=== PATIENT | female | born 1975 | race Caucasian/White ===

== ENCOUNTER → 2016-11-14 | Outpatient (CLI) | payer BC ==
--- NOTE | 2016-11-14 14:04 | US ---
EXAMINATION TYPE: US transvaginal DATE OF EXAM: 11/14/2016 1:32 PM COMPARISON: on PACS CLINICAL HISTORY: Pelvic Pain R10.2. Patient states having intermittent pelvic discomfort, hx of tuba l ligation TECHNIQUE: Transvaginal (TV) Date of LMP: 11/14/2016, EXAM MEASUREMENTS: Uterus: 7.1 x 4.8 x 3.9 cm Endometrial Stripe: 0.3 cm Right Ovary: 2.8 x 1.3 x 1.4 cm Left Ovary: 2.6 x 1.5 x 1.3 cm 1. Uterus: Retroverted Increased peripheral vascularity. 2. Endometrium: wnl 3. Right Ovary: follicles seen 4. Left Ovary: follicles seen Spectral, color and waveform doppler imaging shows good arterial and venous flow within the ovaries ; there is no evidence for ovarian torsion. 5. Bilateral Adnexa: wnl 6. Posterior cul-de-sac: no free fluid IMPRESSION: PLEASE CORRELATE CLINICALLY FOR PELVIC CONGESTION SYNDROME.
== END | disposition home or self-care (01) ==
LOC: RADUSWWP 13:05
PROVIDERS: ATTEND Obstetrics & Gynecology
DX: R10.2 Pelvic and perineal pain (principal)
CPT/HCPCS: 76830

== ENCOUNTER → 2017-05-12 | Outpatient (CLI) | payer BC ==
[2017-05-12 10:37] LABS: Cholesterol 164 mg/dL (<200); HDL Cholesterol 72 mg/dL (40-60)
--- NOTE | 2017-05-12 11:40 | MM ---
Reason for exam: screening (asymptomatic). Last mammogram was performed 3 years and 9 months ago. History: Taking hormonal contraceptives beginning at age 21. Physical Findings: A clinical breast exam by your physician is recommended on an annual basis and results should be correlated with mammographic findings. MG Screening Mammo w CAD Bilateral CC and MLO view(s) were taken. Prior study comparison: August 15, 2013, bilateral digital screening mammo w/CAD. The breast tissue is heterogeneously dense. This may lower the sensitivity of mammography. Finding: There are typically benign round calcifications in the right breast. There is no discrete abnormality. ASSESSMENT: Benign, BI-RAD 2 RECOMMENDATION: Routine screening mammogram of both breasts in 1 year.
== END | disposition home or self-care (01) ==
LOC: RADMAMWWP 09:21
PROVIDERS: ATTEND Obstetrics & Gynecology
DX: Z12.31 Encounter for screening mammogram for malignant neoplasm of breast (principal)
CPT/HCPCS: 80061; 36415; G0202

== ENCOUNTER → 2017-10-06 | Outpatient (CLI) | payer BC ==
--- NOTE | 2017-10-06 13:11 | US ---
EXAMINATION TYPE: US thyroid st tissue head/neck DATE OF EXAM: 10/06/2017 COMPARISON: 08/07/2015 CLINICAL HISTORY: 41-year-old female E04.1 CYSTIC THYROID NODULE. Follow-up exam TECHNIQUE: Multiple sonographic images of the thyroid gland are obtained. FINDINGS: Right Lobe: 4.2 x 1.3 x 1.4 cm Left Lobe: 3.7 x 1.0 x 1.0 cm Isthmus Thickness: 0.3 cm NODULES RIGHT: # of nodules measured on right: 1 1. 11 x 10 x 7 mm hypoechoic solid nodule at the mid pole with well-defined margins. This nodule is wider than tall and shows intranodular vascularity. Prior size: 9 x 9 x 6 mm LEFT: # of nodules measured on left: 0 ISTHMUS: # of nodules measured in the isthmus: 0 Bilateral neck scanned, no evidence of lymphadenopathy. Scanned inferior to thyroid gland bilaterally and saw no parathyroid tissue to image. IMPRESSION: Solitary solid nodule in the right lobe measures 1.1 x 1.0 cm and is only a millimeter or two larger in 2 dimensions as compared to 08/07/2015.
--- NOTE | 2017-10-06 13:21 | XR ---
EXAMINATION TYPE: XR cervical spine comp DATE OF EXAM: 10/06/2017 COMPARISON: NONE HISTORY: 41-year-old female intermittent chronic neck pain and stiffness, cervicalgia TECHNIQUE: 5 views FINDINGS: No predental space widening or prevertebral soft tissue swelling. Reversal normal cervical lordosis. Alignment maintained. The T2 vertebral body projects over the patient's shoulders. Mild disc/endplate degenerative change w ith anterior plate spondylosis particularly at C5-C7 levels, new in the interval as compared to 2013. On the right, there is mild bony spondylotic near foraminal narrowing at C3-C4. On the left, no significant bony spondylotic near foraminal narrowing. Normal odontoid view. IMPRESSION: 1. Mild disc/endplate degenerative change from C5 through C7 levels, new from 2013. 2. Reversal of the normal cervical lordosis. This could be positional or due to muscle spasm. 3. The T2 vertebral body projects about the shoulders. 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 Clinically correlate.
== END | disposition home or self-care (01) ==
LOC: RADUSWWP 10:57
PROVIDERS: ATTEND Family Medicine
DX: E04.1 Nontoxic single thyroid nodule (principal); M47.812 Spondylosis without myelopathy or radiculopathy, cervical region; M53.82 Other specified dorsopathies, cervical region
CPT/HCPCS: 72050; 76536

== ENCOUNTER → 2017-12-07 | Outpatient (CLI) | payer BC | END | disposition home or self-care (01) | LOC: LABWHC1 11:29 | PROVIDERS: ATTEND Student in an Organized Health Care Education/Training Program | DX: E04.1 Nontoxic single thyroid nodule (principal) | CPT/HCPCS: 36415; 82308 ==

== ENCOUNTER → 2018-08-18 | Outpatient (CLI) | payer BC ==
--- NOTE | 2018-08-21 12:33 | MM ---
Reason for exam: screening (asymptomatic). Last mammogram was performed 1 year and 3 months ago. History: Taking hormonal contraceptives beginning at age 21. MG Screening Mammo w CAD Bilateral CC and MLO view(s) were taken. Prior study comparison: May 12, 2017, bilateral MG screening mammo w CAD. August 15, 2013, bilateral digital screening mammo w/CAD. The breast tissue is heterogeneously dense. This may lower the sensitivity of mammography. No significant changes when compared with prior studies. ASSESSMENT: Negative, BI-RAD 1 RECOMMENDATION: Routine screening mammogram of both breasts in 1 year.
== END ==
LOC: RADMAMWWP 11:36
PROVIDERS: ATTEND Obstetrics & Gynecology
DX: Z12.31 Encounter for screening mammogram for malignant neoplasm of breast (principal)
CPT/HCPCS: 77067

== ENCOUNTER → 2018-10-05 | Day surgery (SDC) | payer BC ==
[~2018-10-05] MED LIST: BENZOCAINE SPRAY 1 CAN MUCOUS MEM ONE; MIDAZOLAM 2 MG/2 ML VIAL IV ONE; SODIUM CHLORIDE 0.9% 500 ML 500 ML IV ONE; fentaNYL (PF) 50 MCG/ML 2 ML AMP ONE
[2018-10-05 10:55] VITALS: TEMP 98.4
[2018-10-05] MEDS: MIDAZOLAM 2 MG/2 ML VIAL IV ONE ×2 (11:55→11:58)
[2018-10-05] MEDS: fentaNYL (PF) 50 MCG/ML 2 ML AMP IV ONE ×5 (12:25→12:38)
[2018-10-05 13:11] VITALS: RESP 16
--- NOTE | 2018-10-05 13:13 | ECHOT ---
TRANSESOPHAGEAL ECHOCARDIOGRAM DATE OF SERVICE: October 05, 2018 PERFORMING PHYSICIAN: Jose Enrique Loyola MD, insurance claims adjuster. PROCEDURE PERFORMED: Transesophageal echocardiogram. INDICATION: This is a pleasant 42-year-old female patient who was experiencing intermittent episodes of dizziness and lightheadedness associated with left arm numbness. TIA was a concern and the transesophageal echocardiogram is to rule out any cardiac source of embolization. COMPLICATION: None. LEVEL OF SEDATION: Moderate with sedation length of 12 minutes. PROCEDURE DESCRIPTION: After obtaining an informed consent, explaining the procedure, benefits, risks, complications and alternatives, the patient was brought to the transesophageal echocardiogram suite. A pulse oximetry and heart rate monitors were attached to the patient prior to the procedure. The patient's throat was sprayed using lidocaine locally. Following that, the patient was turned into left lateral position. A bite guard was placed and the patient was then sedated with the above doses of Versed and fentanyl in divided doses. Following that, the transesophageal echocardiogram probe was advanced through the bite guard into the mid esophagus where 2-D echocardiogram images as well as color Doppler images of various cardiac structures were obtained. We evaluated the interatrial septum using 2-D echocardiogram, color Doppler, and contrast study. The procedure was completed. There were no complications. FINDINGS: The left ventricular dimension appeared to be within normal limits. The left ventricular systolic function seems to be low normal with EF of 50%. Right ventricle appeared to be of normal size and function. The left atrium appeared to be mildly dilated. The aortic valve is trileaflet valve without stenosis or regurgitation. The mitral valve seems to be normal with trace MR. Normal tricuspid valve and pulmonic valve. The aortic root appeared to be within normal limits for dimension. The left atrial appendage appeared to be free from any thrombus. The interatrial septum appeared to be intact without any evidence of shunt by color-flow Doppler as well as contrast study. CONCLUSION: 1. No evidence of cardiac source of embolization. 2. Normal left atrial appendage without any thrombus. 3. Intact interatrial septum without any evidence of shunt. 4. Low normal left ventricular systolic function. 5. Normal cardiac chamber sizes. 6. Normal intracardiac valves. 7. Normal aortic root dimension. 8. No evidence of pericardial effusion. MMODL / IJN: [id number] /
[2018-10-05 13:45] VITALS: BP 99/63; PULSE 60
== END ==
LOC: CATHCVL 10:24
PROVIDERS: ATTEND Internal Medicine Interventional Cardiology
DX: I20.1 Angina pectoris with documented spasm (principal); Z79.890 Hormone replacement therapy; Z79.899 Other long term (current) drug therapy
CPT/HCPCS: 93312; 93320; 93325; J2250; J3010

== ENCOUNTER → 2019-10-20 | Outpatient (CLI) | payer BC ==
--- NOTE | 2019-10-20 12:51 | XR ---
EXAMINATION TYPE: XR chest 2V DATE OF EXAM: 10/20/2019 COMPARISON: Chest x-ray August 29, 2013 HISTORY: Cough for 7 weeks. TECHNIQUE: Frontal and lateral views of the chest are obtained. FINDINGS: There is no focal air space opacity, pleural effusion, or pneumothorax seen. The cardiac silhouette size is within normal limits. The osseous structures are intact. IMPRESSION: No suspicious acute pulmonary process.
== END | disposition home or self-care (01) ==
LOC: RADXRMAIN 12:10
PROVIDERS: ATTEND Family Medicine
DX: R05 Cough (principal)
CPT/HCPCS: 71046

== ENCOUNTER → 2020-09-03 | Outpatient (CLI) | payer BC ==
--- NOTE | 2020-09-04 09:28 | MM ---
Reason for exam: screening (asymptomatic). Last mammogram was performed 2 years and 1 month ago. History: Took hormonal contraceptives beginning at age 21. Physical Findings: A clinical breast exam by your physician is recommended on an annual basis and results should be correlated with mammographic findings. MG 3D Screening Mammo W/Cad Bilateral CC and MLO view(s) were taken. Prior study comparison: August 18, 2018, bilateral MG screening mammo w CAD. May 12, 2017, bilateral MG screening mammo w CAD. The breast tissue is heterogeneously dense. This may lower the sensitivity of mammography. Focal asymmetry lower left MLO view. ASSESSMENT: Incomplete: need additional imaging evaluation, BI-RAD 0 RECOMMENDATION: Special view mammogram of the left breast. If lesion persists on supplemental views, image directed ultrasound is recommended. [facility] will attempt to contact patient to return for supplemental views and ultrasound if indicated.
== END | disposition home or self-care (01) ==
LOC: RADMAMWWP 11:01
PROVIDERS: ATTEND Obstetrics & Gynecology
DX: Z12.31 Encounter for screening mammogram for malignant neoplasm of breast (principal)
CPT/HCPCS: 77063; 77067

== ENCOUNTER → 2020-09-03 | Outpatient (CLI) | payer BC ==
[2020-09-03 20:25] LABS: ALT 35 U/L (8-44); AST 38 U/L (13-35); Cholesterol 170 mg/dL (0-200); Triglycerides <50.0 mg/dL (0.0-149.0)
== END | disposition home or self-care (01) ==
LOC: LABWHC1 11:06
PROVIDERS: ATTEND Internal Medicine Interventional Cardiology
DX: E78.2 Mixed hyperlipidemia (principal)
CPT/HCPCS: 36415; 80061; 84450; 84460

== ENCOUNTER → 2020-09-05 | Outpatient (CLI) | payer BC ==
--- NOTE | 2020-09-05 14:44 | MM ---
Reason for exam: additional evaluation requested from abnormal screening. Last mammogram was performed less than 1 month ago. History: Took hormonal contraceptives beginning at age 21. Physical Findings: Nurse did not find any significant physical abnormalities on exam. MG Work Up Mamm w CAD LT Spot compression CC, spot compression MLO, and ML view(s) were taken of the left breast. Prior study comparison: September 03, 2020, bilateral MG 3d screening mammo w/cad. August 18, 2018, bilateral MG screening mammo w CAD. The breast tissue is heterogeneously dense. This may lower the sensitivity of mammography. Focal asymmetry compresses, disperses on compression. These results were verbally communicated with the patient and result sheet given to the patient on 09/05/20. ASSESSMENT: Probably benign, BI-RAD 3 RECOMMENDATION: Follow-up diagnostic mammogram of the left breast in 6 months.
== END | disposition home or self-care (01) ==
LOC: RADMAMWWP 09:11
PROVIDERS: ATTEND Obstetrics & Gynecology
DX: R92.8 Other abnormal and inconclusive findings on diagnostic imaging of breast (principal)
CPT/HCPCS: 77065

== ENCOUNTER 2020-10-24 14:12 | Emergency (ER) | payer BC ==
--- NOTE | 2020-10-24 15:38 | ED ---
SOB HPI <Rema Roldan - Last Filed: 10/24/20 15:35> - General Source: patient, RN notes reviewed Mode of arrival: ambulatory Limitations: no limitations - History of Present Illness MD Complaint: cough -: days(s) (13) Severity scale (1-10): 5 Quality: aching (joints) Consistency: intermittent Improves With: rest Worsens With: exertion, coughing Known History Of: other (dx covid 19 on 10/17, symptoms started 10/11) Context: other (covid + 10/17) Associated Symptoms: cough Treatments Prior to Arrival: other (medrol dose pack, zithromax and cough meds) <Sarthak Cifuentes - Last Filed: 10/24/20 17:45> - General Stated Complaint: O2 levels low-COVID+ - History of Present Illness Initial Comments: Patient is a 44-year-old female presenting to the emergency Department with concerns of low oxygen levels at home. She was diagnosed with Covid 7 days ago, symptoms began 13 days ago. Patient states she's been monitoring her oxygen levels at home and they've been ranging from anywhere from 82% to 95%. She states she is overall feeling improvement of her symptoms but continues to have a headache, cough, fevers as well. She is having some chest discomfort/tigh tness. (Rema Roldan) 44 year old well appearing white female presents with concerns that home pulse ox readings occasionally run below 92%. Pt can't say if she is feeling better on abx and steroids prescribed Thursday by PMD Dr Cortez. States has been talking to friends and family and told if oxygen sats are below 90% needs to be admitted. Sat in office was 97% and here in ER 95%. Pt states has been active and walking at home, trying to be active. Sometimes nauseated with eating but no vomiting or diarrhea. (Sarthak Cifuentes) - Related Data Home Medications Medication Instructions Recorded Confirmed Isosorbide Mononitrate ER [Imdur] 30 mg PO DAILY 10/04/18 10/05/18 Norethindrone-E.estradiol-Iron 1 tab PO DAILY 10/04/18 10/05/18 [Junel Fe 24 Tablet] buPROPion XL [Wellbutrin XL] 150 mg PO DAILY 10/04/18 10/05/18 clonazePAM 1 mg PO BID 10/04/18 10/04/18 Aspirin [Adult Low Dose Aspirin EC] 81 mg PO DAILY 10/05/18 10/05/18 Allergies Allergy/AdvReac Type Severity Reaction Status Date / Time No Known Allergies Allergy Verified 10/24/20 15:42 Review of Systems ROS Other: All systems not noted in ROS Statement are negative. <Rema Roldan - Last Filed: 10/24/20 15:35> ROS Other: All systems not noted in ROS Statement are negative. <Sarthak Cifuentes - Last Filed: 10/24/20 17:45> ROS Statement: Those systems with pertinent positive or pertinent negative responses have been documented in the HPI. General Exam Limitations: no limitations General appearance: alert, in no apparent distress Head exam: Present: atraumatic, normocephalic <Rema Roldan - Last Filed: 10/24/20 15:35> General appearance: alert, in no apparent distress Head exam: Present: atraumatic, normocephalic, normal inspection Eye exam: Present: normal appearance, PERRL, EOMI. Absent: scleral icterus, conjunctival injection, periorbital swelling ENT exam: Present: normal exam, mucous membranes moist Neck exam: Present: normal inspection. Absent: tenderness, meningismus, lymphadenopathy Respiratory exam: Present: normal lung sounds bilaterally. Absent: respiratory distress, wheezes, rales, rhonchi, stridor, chest wall tenderness, accessory muscle use, decreased breath sounds Cardiovascular Exam: Present: regular rate, normal rhythm, normal heart sounds. Absent: systolic murmur, diastolic murmur, rubs, gallop, clicks GI/Abdominal exam: Present: soft, normal bowel sounds. Absent: distended, tenderness, guarding, rebound, rigid Back exam: Present: normal inspection Neurological exam: Present: alert, oriented X3, CN II-XII intact Psychiatric exam: Present: normal affect, normal mood, anxious Skin exam: Present: warm, dry, intact, normal color. Absent: rash <Sarthak Cifuentes - Last Filed: 10/24/20 17:45> Course Vital Signs 10/24/20 10/24/20 15:35 17:22 Temperature 100.1 F H 99.1 F Pulse Rate 95 83 Respiratory 22 18 Rate Blood Pressure 116/75 111/71 O2 Sat by Pulse 95 97 Oximetry Medical Decision Making - Lab Data Result diagrams: 10/24/20 16:22 10/24/20 16:22 <Sarthak Cifuentes - Last Filed: 10/24/20 17:45> - Medical Decision Making cxr shows patchy bi basilar infiltrates typical of covid pneumonia. Pt oxygen sat 95% here, pt well appearing, Will have her continue prescribed meds and f/u with pmd. ambulatory pulse ox 97%. Case discussed with Dr Alejandre, will d/c patient to f/u with pmd this week. (Sarthak Cifuentes) - Lab Data Lab Results 10/24/20 10/24/20 10/24/20 Range/Units 16:22 16:22 16:22 WBC 10.5 (3.8-10.6) k/uL RBC 4.47 (3.80-5.40) m/uL Hgb 14.2 (11.4-16.0) gm/dL Hct 42.1 (34.0-46.0) % MCV 94.2 (80.0-100.0) fL MCH 31.8 (25.0-35.0) pg MCHC 33.8 (31.0-37.0) g/dL RDW 12.3 (11.5-15.5) % Plt Count 217 (150-450) k/uL MPV 7.5 Neutrophils % 80 % Lymphocytes % 9 % Monocytes % 8 % Eosinophils % 1 % Basophils % 0 % Neutrophils # 8.4 H (1.3-7.7) k/uL Lymphocytes # 1.0 (1.0-4.8) k/uL Monocytes # 0.8 (0-1.0) k/uL Eosinophils # 0.1 (0-0.7) k/uL Basophils # 0.0 (0-0.2) k/uL PT 9.4 (9.0-12.0) sec INR 0.9 (<1.2) APTT 22.5 (22.0-30.0) sec D-Dimer 0.30 (<0.60) mg/L FEU Sodium 137 (137-145) mmol/L Potassium 3.6 (3.5-5.1) mmol/L Chloride 102 (98-107) mmol/L Carbon Dioxide 26 (22-30) mmol/L Anion Gap 9 mmol/L BUN 19 H (7-17) mg/dL Creatinine 0.65 (0.52-1.04) mg/dL Est GFR (CKD-EPI)AfAm >90 (>60 ml/min/1.73 sqM) Est GFR (CKD-EPI)NonAf >90 (>60 ml/min/1.73 sqM) Glucose 115 H (74-99) mg/dL Plasma Lactic Acid Amos (0.7-2.0) mmol/L Calcium 9.2 (8.4-10.2) mg/dL Magnesium 1.9 (1.6-2.3) mg/dL Total Bilirubin 0.4 (0.2-1.3) mg/dL AST 60 H (14-36) U/L ALT 64 H (4-34) U/L Alkaline Phosphatase 72 (38-126) U/L Lactate Dehydrogenase 718 H (313-618) U/L C-Reactive Protein 58.0 H (<10.0) mg/L Total Protein 6.9 (6.3-8.2) g/dL Albumin 4.0 (3.5-5.0) g/dL 10/24/20 Range/Units 16:22 WBC (3.8-10.6) k/uL RBC (3.80-5.40) m/uL Hgb (11.4-16.0) gm/dL Hct (34.0-46.0) % MCV (80.0-100.0) fL MCH (25.0-35.0) pg MCHC (31.0-37.0) g/dL RDW (11.5-15.5) % Plt Count (150-450) k/uL MPV Neutrophils % % Lymphocytes % % Monocytes % % Eosinophils % % Basophils % % Neutrophils # (1.3-7.7) k/uL Lymphocytes # (1.0-4.8) k/uL Monocytes # (0-1.0) k/uL Eosinophils # (0-0.7) k/uL Basophils # (0-0.2) k/uL PT (9.0-12.0) sec INR (<1.2) APTT (22.0-30.0) sec D-Dimer (<0.60) mg/L FEU Sodium (137-145) mmol/L Potassium (3.5-5.1) mmol/L Chloride (98-107) mmol/L Carbon Dioxide (22-30) mmol/L Anion Gap mmol/L BUN (7-17) mg/dL Creatinine (0.52-1.04) mg/dL Est GFR (CKD-EPI)AfAm (>60 ml/min/1.73 sqM) Est GFR (CKD-EPI)NonAf (>60 ml/min/1.73 sqM) Glucose (74-99) mg/dL Plasma Lactic Acid Amos 0.9 (0.7-2.0) mmol/L Calcium (8.4-10.2) mg/dL Magnesium (1.6-2.3) mg/dL Total Bilirubin (0.2-1.3) mg/dL AST (14-36) U/L ALT (4-34) U/L Alkaline Phosphatase (38-126) U/L Lactate Dehydrogenase (313-618) U/L C-Reactive Protein (<10.0) mg/L Total Protein (6.3-8.2) g/dL Albumin (3.5-5.0) g/dL Disposition <Rema Roldan - Last Filed: 10/24/20 15:35> Is patient prescribed a controlled substance at d/c from ED?: No Time of Disposition: 17:44 <Sarthak Cifuentes - Last Filed: 10/24/20 17:45> Clinical Impression: Pneumonia due to COVID-19 virus Disposition: HOME SELF-CARE Condition: Good Instructions (If sedation given, give patient instructions): Viral Pneumonia (ED) Additional Instructions: continue monitoring pulse ox at home when short of breath, continue medications as previously prescribed by Dr Monroe's office. Increase fluid intake. Referrals: Lynn Monroe MD [Primary Care Provider] - 1-2 days
[2020-10-24] MEDS ORDERED: ACETAMINOPHEN TAB 500 MG TAB PO STA (15:39)
--- NOTE | 2020-10-24 16:21 | XR ---
EXAMINATION TYPE: XR chest 1V portable DATE OF EXAM: 10/24/2020 COMPARISON: NONE HISTORY: Suspected COVID-19 pneumonia TECHNIQUE: Single frontal view of the chest is obtained. FINDINGS: Patchy basilar infiltrates suspicious for Covid 19 pneumonia. Correlate clinically and progress studi es are recommended. The cardiac silhouette size is within normal limits. The osseous structures are intact. IMPRESSION: 1. Patchy basilar infiltrates suspicious for Covid 19 pneumonia. Correlate clinically and progress s tudies are recommended.
[2020-10-24 16:34] LABS: Basophils % (A) 0 %; Eosinophils # (A) 0.1 k/uL (0-0.7); Eosinophils % (A) 1 %; HCT 42.1 % (34.0-46.0); HGB 14.2 gm/dL (11.4-16.0); Lymphocytes % (A) 9 %; MCH 31.8 pg (25.0-35.0); MCHC 33.8 g/dL (31.0-37.0); MCV 94.2 fL (80.0-100.0); Mean Platelet Volume 7.5; Monocytes # (A) 0.8 k/uL (0-1.0); Monocytes % (A) 8 %; Neutrophils # (A) 8.4 k/uL (1.3-7.7); Neutrophils % (A) 80 %; Platelet Count 217 k/uL (150-450); RBC 4.47 m/uL (3.80-5.40); RDW 12.3 % (11.5-15.5); WBC 10.5 k/uL (3.8-10.6)
[2020-10-24 16:47] LABS: ALT 64 U/L (4-34); AST 60 U/L (14-36); African American GFR (CKD) >90 (>60 ml/min/1.73 sqM); Alkaline Phosphatase 72 U/L (38-126); Anion Gap 9 mmol/L; Blood Urea Nitrogen 19 mg/dL (7-17); Calcium 9.2 mg/dL (8.4-10.2); Carbon Dioxide 26 mmol/L (22-30); Chloride 102 mmol/L (98-107); Glucose 115 mg/dL (74-99); LDH 718 U/L (313-618); Magnesium 1.9 mg/dL (1.6-2.3); Non-African American GFR(CKD) >90 (>60 ml/min/1.73 sqM); Potassium 3.6 mmol/L (3.5-5.1); Sodium 137 mmol/L (137-145); Total Bilirubin 0.4 mg/dL (0.2-1.3); Total Protein 6.9 g/dL (6.3-8.2)
[2020-10-24 16:49] LABS: D-Dimer 0.3 mg/L FEU (<0.60); INR 0.9 (<1.2); Partial Thromboplastin Time 22.5 sec (22.0-30.0); Prothrombin Time 9.4 sec (9.0-12.0)
[2020-10-24 17:23] VITALS: BP 111/71; PULSE 83; RESP 18; TEMP 99.1
[2020-10-25 21:16] LABS: Ferritin 391.7 ng/mL (10.0-291.0)
== END 2020-10-24 18:00 | disposition home or self-care (01) ==
LOC: EC 14:12
DX: U07.1 COVID-19 (principal); J12.82 Pneumonia due to coronavirus disease 2019; Z79.82 Long term (current) use of aspirin
CPT/HCPCS: 36415; 71045; 80053; 82728; 83605; 83615; 83735; 84145; 85025; 85379; 85610; 85730; 86140; 87040; 93005; 99284

== ENCOUNTER → 2021-03-12 | Outpatient (CLI) | payer BC ==
--- NOTE | 2021-03-14 09:52 | MM ---
Reason for exam: follow-up at short interval from prior study. Last mammogram was performed 6 months ago. History: Took hormonal contraceptives beginning at age 21. Physical Findings: Nurse did not find any significant physical abnormalities on exam. MG 3D Diag Mammo W/Cad LT CC and MLO view(s) were taken of the left breast. Prior study comparison: September 05, 2020, left breast MG work up mamm w CAD LT. September 03, 2020, bilateral MG 3d screening mammo w/cad. Finding: There is a stable 1.4 mm mass in the lower quadrant of the left breast. These results were verbally communicated with the patient and result sheet given to the patient on 03/12/21. ASSESSMENT: Incomplete: need additional imaging evaluation, BI-RAD 0 RECOMMENDATION: Ultrasound of the left breast.
--- NOTE | 2021-03-14 09:54 | USB ---
Reason for exam: additional evaluation requested from abnormal screening. History: Took hormonal contraceptives beginning at age 21. US Breast Limited LT Technologist: Berenice Christine Left limited breast ultrasound including focal area of concern, retroareolar and axilla demonstrates a 0.5 x 0.3 x 0.3cm mixed lesion at 5 o'clock and a 0.7 x 0.8 x 0.5cm mixed lesion at 6 o'clock. These results were verbally communicated with the patient and result sheet given to the patient on 03/12/21. ASSESSMENT: Suspicious, BI-RAD 4 RECOMMENDATION: Ultrasound core biopsy of the left breast. Called Dr. Gonzalez's office with mammographic findings and has scheduled an appointment for the patient for 04/04/21 at 8:[address] Vela. Biopsy scheduled for 03/25/21 at 12:00. PRELIMINARY REPORT CALLED AND FAXED TO DR. VELA ON 03/14/21.
== END | disposition home or self-care (01) ==
LOC: RADMAMWWP 09:36
PROVIDERS: ATTEND Obstetrics & Gynecology
DX: R92.8 Other abnormal and inconclusive findings on diagnostic imaging of breast (principal)
CPT/HCPCS: 77061; 77065

== ENCOUNTER → 2021-03-25 | Day surgery (SDC) | payer BC ==
[2021-03-25 12:31] VITALS: RESP 16; TEMP 97.9
--- NOTE | 2021-03-25 13:55 | USB ---
EXAMINATION TYPE: US biopsy breast VAD LT, MG diagnostic mammo LT wo CAD DATE OF EXAM: 03/25/2021 CLINICAL HISTORY: R92.8 abnormal mammogram. TECHNIQUE: Ultrasound guided core biopsy of left 6:00 breast. COMPARISON: NONE FINDINGS: The procedure of ultrasound guided core biopsy was explained to the patient. Benefits, alternatives, and risks were discussed. An informed consent was then obtained. Please note left 5:00 mixed lesion seen on prior examination is smaller in size and follow-up is recommended of this area in 6 months. The patient was placed in supine positioning for imaging and for the procedure. The overlying skin was prepped and draped in usual sterile fashion. Lidocaine buffered with bicarbonate was used as anesthetic into the skin and subcutaneous tissue up to area of concern in the left 6:00 breast. Under ultrasound guidance, a 12-gauge vacuum assisted biopsy gun device was used to obtain 2 core samples. The lesion could no longer be visualized. Following this, a biopsy clip was left in lesion. Postprocedural mammogram demonstrates appropriate clip deployment. The patient tolerated the procedure well without any immediate complication. The patient was kept in the radiology department for short stay after the procedure and then discharged home in stable condition. IMPRESSION: Successful, uncomplicated ultrasound guided core biopsy of area of concern in the left 6:00 breast, full pathology results to follow. Six-month follow-up ultrasound of left 5:00 tiny mixed lesion. Pathology Results: Benign LEFT BREAST, CORE BIOPSY: Fibrocystic change with apocrine metaplasia, columnar cell change with focal microcalcification and usual ductal hyperplasia and stromal fibrosis. Focal adenosis present. 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 Recommendation 6 month follow up post biopsy ultrasound 6 o'clock left breast. 6 month follow up ultrasound birads 3 5 o'clock mixed lesion left breast. MTDD
[2021-03-25 14:04] VITALS: BP 98/47; PULSE 60
== END ==
LOC: RADUSWWP 12:02
PROVIDERS: ATTEND Surgery
DX: R92.8 Other abnormal and inconclusive findings on diagnostic imaging of breast (principal)
CPT/HCPCS: 19083; 88305; 77065; A4648; J2001

== ENCOUNTER → 2021-09-26 | Outpatient (CLI) | payer BC ==
--- NOTE | 2021-09-27 11:31 | MM ---
Reason for exam: follow-up at short interval from prior study. Last mammogram was performed 6 months ago. History: Benign US biopsy breast VAD LT of the left breast, March 25, 2021. Took hormonal contraceptives beginning at age 21. Physical Findings: Nurse did not find any significant physical abnormalities on exam. MG 3D Diag Mammo W/Cad ESTEBAN Bilateral CC and MLO view(s) were taken. Prior study comparison: March 25, 2021, left breast MG diagnostic mammo LT wo CAD. March 12, 2021, left breast MG 3d diag mammo w/cad LT. The breast tissue is heterogeneously dense. This may lower the sensitivity of mammography. Previous mammotome biopsy in the left breast at 6 o'clock. The previous hematoma has resolved. No significant new findings when compared with previous films. These results were verbally communicated with the patient and result sheet given to the patient on 09/26/21. ASSESSMENT: Incomplete: need additional imaging evaluation, BI-RAD 0 RECOMMENDATION: Ultrasound of the left breast.
--- NOTE | 2021-09-27 11:35 | USB ---
Reason for exam: additional evaluation requested from abnormal screening. History: Benign US biopsy breast VAD LT of the left breast, March 25, 2021. Took hormonal contraceptives beginning at age 21. US Breast Limited LT Left limited breast ultrasound including focal area of concern, retroareolar and axilla demonstrates a 0.6 x 0.3 x 0.3cm lesion at 5 o'clock verus 5 x 3 x 3mm hypoechoic lesion at 5 o'clock, probable debris filled cyst, relatively stable for 6 months. Additional 1 year follow up recommended. The 6 o'clock biopsied lesion has resolved. These results were verbally communicated with the patient and result sheet given to the patient on 09/26/21. ASSESSMENT: Probably benign, BI-RAD 3 RECOMMENDATION: Follow-up diagnostic mammogram of both breasts in 1 month. Ultrasound of the left breast in 1 year.
== END | disposition home or self-care (01) ==
LOC: RADMAMWWP 13:53
PROVIDERS: ATTEND Obstetrics & Gynecology
DX: R92.8 Other abnormal and inconclusive findings on diagnostic imaging of breast (principal)
CPT/HCPCS: 77062; 77066

== ENCOUNTER → 2021-10-24 | Outpatient (CLI) | payer BC ==
--- NOTE | 2021-10-24 16:05 | XR ---
EXAMINATION TYPE: XR lumbar spine 2 or 3V DATE OF EXAM: 10/24/2021 COMPARISON: None HISTORY: Back pain TECHNIQUE: 3 view lumbar spine FINDINGS: There are 5 lumbar-type vertebral bodies. The pedicles are intact. Vertebral body heights a re preserved. Some disc space narrowing is present L4-5 posteriorly at L5-S1 and L3-4. Remaining disc heights are preserved. IMPRESSION: 1. Degenerative disc changes L3-4 through L5-S1
== END | disposition home or self-care (01) ==
LOC: RADXRMAIN 11:41
PROVIDERS: ATTEND Nurse Practitioner Gerontology
DX: R92.8 Other abnormal and inconclusive findings on diagnostic imaging of breast (principal); M54.9 Dorsalgia, unspecified
CPT/HCPCS: 72100

== ENCOUNTER 2022-03-04 19:43 | Emergency (ER) | payer BC ==
[2022-03-04 19:49] VITALS: TEMP 97.8
--- NOTE | 2022-03-04 20:11 | ED ---
Chest Pain HPI - General Chief Complaint: Chest Pain Stated Complaint: Chest pain Time Seen by Provider: 03/04/22 20:05 Source: patient Mode of arrival: ambulatory - History of Present Illness Initial Comments: 46-year-old female with past history of a anginal presents to the emergency department with chest pain. States that it started today when she was at her primary care office or describes it as a sharp, shooting sensation which is worse with inspiration and movement. She recently had an upper respiratory infection with sore throat. Symptoms improved approximate 4 days ago. Today she was seen her primary care physician for a routine follow-up when she began having the pain. They completed and EKG. She was told to have lab work completed in take an aspirin daily. Patient was concerned that the pain was not improving and therefore presents to the emergency room for urgent evaluation. He has a long-standing history of angina. Follows with Dr. Loyola every 6 months. Recently had an echo. Patient has even had a heart cath which was normal. Previously up until one year ago was on Imdur however stopped the medication by her own choice. She denies fevers, chills or cough. No history of DVT or PE. No calf pain or swelling. No other alleviating, precipitating or modifying factors - Related Data Home Medications Medication Instructions Recorded Confirmed clonazePAM 0.5 mg PO HS PRN 10/04/18 03/04/22 Previous Rx's Medication Instructions Recorded Ketorolac [Toradol] 10 mg PO Q8HR PRN #15 tab 03/04/22 Allergies Allergy/AdvReac Type Severity Reaction Status Date / Time No Known Allergies Allergy Verified 03/04/22 21:32 Review of Systems ROS Statement: Those systems with pertinent positive or pertinent negative responses have been documented in the HPI. ROS Other: All systems not noted in ROS Statement are negative. EKG Findings - EKG Comments: EKG Findings:: EKG demonstrates sinus rhythm with a rate of 73. NC interval 131. QRS 89. QTC of 427. Mild ST depression in lead 2. No acute ST segment elevations Past Medical History Past Medical History: No Reported History Additional Past Medical History / Comment(s): Covid History of Any Multi-Drug Resistant Organisms: None Reported Past Surgical History: Orthopedic Surgery, Tubal Ligation Additional Past Surgical History / Comment(s): rt knee, exp lap, pancreatic biopsys, heart cath-clear Past Anesthesia/Blood Transfusion Reactions: No Reported Reaction Past Psychological History: No Psychological Hx Reported Smoking Status: Never smoker Past Alcohol Use History: Daily Past Drug Use History: None Reported General Exam General appearance: alert, in no apparent distress Head exam: Present: atraumatic, normocephalic, normal inspection Eye exam: Present: normal appearance, PERRL, EOMI. Absent: scleral icterus, conjunctival injection, periorbital swelling ENT exam: Present: normal exam, mucous membranes moist Neck exam: Present: normal inspection. Absent: tenderness, meningismus, lymphadenopathy Respiratory exam: Present: normal lung sounds bilaterally. Absent: respiratory distress, wheezes, rales, rhonchi, stridor Cardiovascular Exam: Present: regular rate, normal rhythm, normal heart sounds. Absent: systolic murmur, diastolic murmur, rubs, gallop, clicks GI/Abdominal exam: Present: soft, normal bowel sounds. Absent: distended, tenderness, guarding, rebound, rigid Extremities exam: Present: normal inspection, full ROM, normal capillary refill. Absent: tenderness, pedal edema, joint swelling, calf tenderness Back exam: Present: normal inspection Neurological exam: Present: alert, oriented X3, CN II-XII intact Psychiatric exam: Present: normal affect, normal mood Skin exam: Present: warm, dry, intact, normal color. 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 A thorough history and physical exam was performed. IV access was established and laboratory studies were conducted. 12-lead EKG was obtained. Chest x-ray was performed. I did review the labs and imaging discuss results with the patient. I did discuss diagnosis, differential and treatment options. At this time the patient will be discharged home and instructed follow-up with Dr. loyola. Will be placed on a 5 day course of Toradol for her pain. She is to follow-up with her primary care doctor in 2- 4 days and return for any new or worsening symptoms Disposition Clinical Impression: Chest pain Disposition: HOME SELF-CARE Condition: Stable Instructions (If sedation given, give patient instructions): Chest Pain (ED) Additional Instructions: Please take the Toradol as directed and follow-up with Dr. Loyola in regards to your symptoms. Return for any new or worsening symptoms Prescriptions: Ketorolac [Toradol] 10 mg PO Q8HR PRN #15 tab PRN Reason: Pain Is patient prescribed a controlled substance at d/c from ED?: No Referrals: Lynn Monroe MD [Primary Care Provider] - 1-2 days Jose Enrique Loyola MD [STAFF PHYSICIAN] - 1-2 days Time of Disposition: 22:08
[2022-03-04 20:15] LABS: Basophils # (A) 0.1 k/uL (0-0.2); Basophils % (A) 1 %; Eosinophils # (A) 0.2 k/uL (0-0.7); Eosinophils % (A) 2 %; HCT 45.1 % (34.0-46.0); HGB 14.7 gm/dL (11.4-16.0); Lymphocytes # (A) 2.4 k/uL (1.0-4.8); Lymphocytes % (A) 27 %; MCH 31.5 pg (25.0-35.0); MCHC 32.6 g/dL (31.0-37.0); MCV 96.6 fL (80.0-100.0); Mean Platelet Volume 7.2; Monocytes # (A) 0.8 k/uL (0-1.0); Monocytes % (A) 9 %; Neutrophils # (A) 5.4 k/uL (1.3-7.7); Neutrophils % (A) 61 %; Platelet Count 254 k/uL (150-450); RBC 4.67 m/uL (3.80-5.40); RDW 12.1 % (11.5-15.5); WBC 8.9 k/uL (3.8-10.6)
[2022-03-04 20:28] LABS: ALT 28 U/L (4-34); AST 38 U/L (14-36); African American GFR (CKD) >90 (>60 ml/min/1.73 sqM); Albumin 4.4 g/dL (3.5-5.0); Alkaline Phosphatase 70 U/L (38-126); Anion Gap 6 mmol/L; Blood Urea Nitrogen 18 mg/dL (7-17); Calcium 9.4 mg/dL (8.4-10.2); Carbon Dioxide 31 mmol/L (22-30); Chloride 99 mmol/L (98-107); Glucose 85 mg/dL (74-99); LDH 496 U/L (313-618); Lipase 163 U/L (23-300); Magnesium 2.1 mg/dL (1.6-2.3); Non-African American GFR(CKD) >90 (>60 ml/min/1.73 sqM); Potassium 4.1 mmol/L (3.5-5.1); Sodium 136 mmol/L (137-145); Total Bilirubin 0.3 mg/dL (0.2-1.3); Uric Acid 3.6 mg/dL (3.7-7.4)
[2022-03-04 20:29] LABS: C Reactive Protein <0.5 mg/dL (<1.0)
--- NOTE | 2022-03-04 20:46 | XR ---
EXAMINATION TYPE: XR chest 2V DATE OF EXAM: 03/04/2022 COMPARISON: 10/24/2020 HISTORY: Chest pain TECHNIQUE: 2 views FINDINGS: Heart and mediastinum are normal. Lungs are clear. Diaphragm is normal. Bony thorax appears normal. IMPRESSION: Normal chest. There is clearing of the bilateral pneumonia compared to exam
[2022-03-04 20:54] LABS: INR 0.9 (<1.2); Partial Thromboplastin Time 22.8 sec (22.0-30.0); Prothrombin Time 10.2 sec (9.0-12.0)
[2022-03-04] MEDS ORDERED: KETOROLAC 15 MG/ML 1 ML VIAL IVP STA (21:21)
[2022-03-04 22:26] VITALS: BP 117/86; PULSE 58; RESP 16
== END 2022-03-04 22:26 | disposition home or self-care (01) ==
LOC: EC 19:43
DX: R07.89 Other chest pain (principal)
CPT/HCPCS: 36415; 93005; 85379; 80053; 84443; 83615; 83690; 83735; 84550; 84484; 85025; 85610; 85730; 86140; 71046; 99285; 96374; J1885

== ENCOUNTER → 2022-03-05 | Outpatient (CLI) | payer BC ==
[2022-03-05 18:28] LABS: Protein, Total 6.4 g/dL (6.2-8.2)
[2022-03-05 18:46] LABS: Chol/HDL Ratio 3.01 Ratio; LDL Cholesterol,Calculated 101.6 mg/dL (0.0-131.0); Testosterone 8.46 ng/mL (9.01-47.94); VLDL Calculation 15.92 mg/dL (5.00-40.00)
[2022-03-06 10:18] LABS: Free Kappa Lt Chain Qnt, Serum 1.74 mg/dL (0.33-1.94); Free Lambda Lt Chain Qnt, Seru 1.11 mg/dL (0.57-2.63)
[2022-03-06 13:05] LABS: Albumin 3.99 g/dL (3.80-4.90); Gamma Globulin 0.92 g/dL (0.70-1.50)
[2022-03-06 18:14] LABS: Cyclic Citrull Pep IgG Unit <0.5 U/mL; Cyclic Citrullinated Pep IgG NEGATIVE (NEGATIVE)
== END | disposition home or self-care (01) ==
LOC: LABWHC1 13:51
PROVIDERS: ATTEND Family Medicine
DX: Z00.00 Encounter for general adult medical examination without abnormal findings (principal); M13.0 Polyarthritis, unspecified; R07.9 Chest pain, unspecified; K86.3 Pseudocyst of pancreas; E53.8 Deficiency of other specified B group vitamins; E55.9 Vitamin D deficiency, unspecified
CPT/HCPCS: 36415; 80061; 82306; 82533; 82607; 82626; 83883; 84165; 84403; 86038; 86200; 86334; 86618

== ENCOUNTER → 2022-03-11 | Outpatient (CLI) | payer BC ==
--- NOTE | 2022-03-12 11:03 | US ---
EXAMINATION TYPE: US thyroid st tissue head/neck DATE OF EXAM: 03/11/2022 COMPARISON: 10/06/2017 CLINICAL HISTORY: E04.1 THYROID NODULE. Follow up nodule GLAND SIZE: Right Lobe: 4.3 x 1.5 x 1.8 cm Overall Parenchyma: homogenous Left Lobe: 3.4 x 1.3 x 1.0 cm Overall Parenchyma: homogeneous Isthmus Thickness: 0.3 cm NODULES RIGHT: # of nodules measured on right: 1 1. 0.9 X 0.8 x 0.6 cm, mid medial, solid or almost completely solid, isoechoic nodule, which is wid er than tall, with smooth margins, without echogenic foci. Prior size: 1.1 x 1.0 x 0.7 cm LEFT: # of nodules measured on left: 0 ISTHMUS: # of nodules measured in the isthmus: 0 Bilateral neck scanned, no evidence of lymphadenopathy. IMPRESSION: Mildly suspicious nodule right lobe thyroid. Consider follow-up in one year 2017 ACR TI-RADS LEVEL: TR-RADS 3 - Mildly Suspicious: Follow if > 1.5 cm, FNA if > 2.5 cm *Highest TI-RADS level nodule reported
== END | disposition home or self-care (01) ==
LOC: RADUSWWP 16:14
PROVIDERS: ATTEND Family Medicine
DX: E04.1 Nontoxic single thyroid nodule (principal)
CPT/HCPCS: 76536

== ENCOUNTER → 2022-04-08 | Outpatient (CLI) | payer BC ==
--- NOTE | 2022-04-08 12:03 | MR ---
MRI CERVICAL SPINE: CLINICAL HISTORY: Cervicalgia. Neck pain for a few years causing pain or weakness into right arm. TECHNIQUE: Multiplanar, multisequence imaging of the cervical spine is performed without IV contrast. COMPARISON: None. FINDINGS: Sagittal images of the cervical spine show the craniocervical junction to appear within nor mal limits. The cervical and upper thoracic spinal cord is normal in caliber and signal. Slight grad e 1 anterolisthesis C4 on C5. Mild disc space narrowing C5-C6 level The vertebral body and intravert ebral disk heights otherwise are normal. Moderate anterior spurring C5-C6 and C6-C7 levels. Heterogen eous diminished T1 and increased T2 signal involving the C5 and C6 vertebra without abnormal signal i n the adjacent discs favors Modic type I degenerative change. Axial images show C2-C3 through the C4-C5 levels to appear within normal limits. Axial images at C5-C6 level shows mild broad-based posterior left paracentral/foraminal spur disc com plex minimally effacing anterior thecal sac and causing asymmetric mild to moderate left-sided neural foraminal narrowing. Axial images at C6-C7 level showed broad base posterior spur disc complex mildly effacing the anterio r thecal sac, patent bilateral neural foramina. Axial images at C7-T1 level appear within normal limits. Thyroid gland appears unremarkable. IMPRESSION: Degenerative changes C5-C6 and C6-C7 level are noted as detailed above.
== END | disposition home or self-care (01) ==
LOC: RADMRIMAIN 11:14
PROVIDERS: ATTEND Family Medicine
DX: M54.2 Cervicalgia (principal)
CPT/HCPCS: 72141

== ENCOUNTER → 2022-05-06 | Outpatient (CLI) | payer BC ==
--- NOTE | 2022-05-06 12:59 | MR ---
EXAMINATION TYPE: MR lumbar spine wo con DATE OF EXAM: 05/06/2022 COMPARISON: Lumbar spine x-ray October 24, 2021 HISTORY: Lower back pain, BLE radiculopathy. TECHNIQUE: Multiplanar, multisequence imaging of the lumbar spine is performed without IV contrast. FINDINGS: Sagittal images of the lumbar spine show vertebral body heights and alignment to remain sat isfactory. Multilevel disc desiccation. There is moderate disc space narrowing with heterogeneous Mod ic type I endplate changes at L5-S1 level and mild anterior spurring The conus medullaris is normal i n position and signal ending inferior L1 level. Axial images show T12-L1 and L1-L2 levels to appear within normal limits. Axial images at L2-L3 level show small focal right paracentral disc protrusion minimally effacing the anterolateral thecal sac. Patent bilateral neural foramina. Axial images at L3-L4 level show mild to moderate facet arthropathy and ligamentum flavum hypertrophy slightly effacing the left posterior lateral thecal sac. There is mild broad disc bulge minimally ef facing the anterior thecal sac. Bilateral neural foramina are patent. Axial images at the L4-L5 level show mild broad-based posterior disc protrusion minimally effacing th e anterior thecal sac. There is mild facet arthropathy bilaterally. There is mild to moderate right-s ided anterior inferior neural foraminal narrowing. Heterogeneous Modic type I endplate changes right L4-L5 level noted. Axial images at L5-S1 level show mild facet arthropathy bilaterally. Small central disc protrusion wi th spinal canal is preserved as there is increased epidural fat noted. Bilateral neural foramina show mild inferior inferior neural foraminal narrowing. Simple appearing thin-walled 2.3 x 1.9 cm cyst in the right kidney axial image 34 is noted. IMPRESSION: Some multilevel degenerative change in the mid to lower lumbar spine as detailed above.
== END | disposition home or self-care (01) ==
LOC: RADMRIMAIN 11:23
PROVIDERS: ATTEND Family Medicine
DX: M51.36 Other intervertebral disc degeneration, lumbar region (principal)
CPT/HCPCS: 72148

== ENCOUNTER → 2022-06-12 | Outpatient (CLI) | payer BC ==
[2022-06-12 18:44] LABS: Estradiol 55.2 pg/mL; Follicle Stimulating Hormone 4.4 mIU/mL
[2022-06-12 21:11] LABS: Testosterone <2.50 ng/mL (9.01-47.94)
== END | disposition home or self-care (01) ==
LOC: LABWHC1 12:48
PROVIDERS: ATTEND Obstetrics & Gynecology
DX: N95.2 Postmenopausal atrophic vaginitis (principal); M25.50 Pain in unspecified joint
CPT/HCPCS: 36415; 82670; 83001; 84144; 84402; 84403

== ENCOUNTER → 2022-06-25 | Outpatient (CLI) | payer BC | END | disposition home or self-care (01) | LOC: LABWHC1 09:10 | PROVIDERS: ATTEND Family Medicine | DX: E34.9 Endocrine disorder, unspecified (principal); R53.83 Other fatigue | CPT/HCPCS: 36415; 82533; 82626 ==

== ENCOUNTER → 2022-08-11 | Outpatient (CLI) | payer BC | END | disposition home or self-care (01) | LOC: LABWHC1 13:54 | PROVIDERS: ATTEND Obstetrics & Gynecology | DX: E34.50 Androgen insensitivity syndrome, unspecified (principal); R53.83 Other fatigue | CPT/HCPCS: 36415; 84402; 84403 ==

== ENCOUNTER → 2023-01-06 | Outpatient (CLI) | payer BC ==
[2023-01-06 20:25] LABS: Estradiol <20.0 pg/mL
[2023-01-07 02:23] LABS: Follicle Stimulating Hormone 52.3 mIU/mL
== END | disposition home or self-care (01) ==
LOC: LABWHC1 16:25
PROVIDERS: ATTEND Obstetrics & Gynecology
DX: E34.50 Androgen insensitivity syndrome, unspecified (principal); N95.1 Menopausal and female climacteric states
CPT/HCPCS: 36415; 82670; 83001; 84144

== ENCOUNTER → 2023-03-26 | Outpatient (CLI) | payer BC ==
[2023-03-26 19:52] LABS: Estradiol 32.5 pg/mL
[2023-03-26 22:54] LABS: Follicle Stimulating Hormone 17.7 mIU/mL
== END | disposition home or self-care (01) ==
LOC: LABWHC1 15:46
PROVIDERS: ATTEND Obstetrics & Gynecology
DX: E34.50 Androgen insensitivity syndrome, unspecified (principal); N95.2 Postmenopausal atrophic vaginitis
CPT/HCPCS: 36415; 82670; 83001; 84144; 84402; 84403

== ENCOUNTER → 2023-05-27 | Outpatient (CLI) | payer BC ==
[2023-05-27 19:24] LABS: Estradiol 69.1 pg/mL; Testosterone 62.8 ng/dL (9.01-47.94)
[2023-05-27 19:57] LABS: Follicle Stimulating Hormone 11.8 mIU/mL
== END | disposition home or self-care (01) ==
LOC: LABWHC1 14:05
PROVIDERS: ATTEND Obstetrics & Gynecology
DX: N95.1 Menopausal and female climacteric states (principal)
CPT/HCPCS: 36415; 82670; 83001; 84144; 84403

== ENCOUNTER → 2023-07-03 | Outpatient (CLI) | payer BC ==
[2023-07-04 02:07] LABS: HGB 14.3 g/dL (12.0-15.0); MCH 32.6 pg (27.0-32.0); MCHC 33.3 g/dL (32.0-37.0); MCV 98.2 FL (80.0-97.0); Mean Platelet Volume 9.8 FL (9.5-12.2); NRBC Per 100 WBC 0 X 10*3/uL (0.00-0.01); Platelet Count 235 X 10*3/uL (140-440); RBC 4.38 X 10*6/uL (4.10-5.20); RDW 12.6 % (11.5-14.5); WBC 10.69 X 10*3/uL (4.50-10.00)
[2023-07-04 02:50] LABS: ALT 28 U/L (8-44); AST 29 U/L (13-35); Albumin 4.4 g/dL (3.8-4.9); Alkaline Phosphatase 66 U/L (41-126); BUN/Creat Ratio 21.71 Ratio (12.00-20.00); Blood Urea Nitrogen 15.2 mg/dL (9.0-27.0); Calcium 9.5 mg/dL (8.7-10.3); Carbon Dioxide 28.7 mmol/L (21.6-31.8); Chloride 102 mmol/L (96-109); Chol/HDL Ratio 3.04 Ratio; Globulin 2.2 g/dL (1.6-3.3); Glucose 103 mg/dL (70-110); LDL Cholesterol,Calculated 100.3 mg/dL (0.0-131.0); Potassium 4.6 mmol/L (3.5-5.5); Sodium 138 mmol/L (135-145); Total Bilirubin 0.3 mg/dL (0.3-1.2); Total Protein 6.6 g/dL (6.2-8.2); VLDL Calculation 18.44 mg/dL (5.00-40.00)
== END | disposition home or self-care (01) ==
LOC: LABWHC1 16:12
PROVIDERS: ATTEND Family Medicine
DX: Z00.00 Encounter for general adult medical examination without abnormal findings (principal); Z79.890 Hormone replacement therapy; R79.89 Other specified abnormal findings of blood chemistry
CPT/HCPCS: 36415; 80053; 80061; 82626; 82670; 83036; 84144; 84403; 84443; 85027

== ENCOUNTER → 2023-09-14 | Outpatient (CLI) | payer BC ==
[2023-09-15 02:54] LABS: Testosterone 85.6 ng/dL (9.01-47.94)
[2023-09-15 03:02] LABS: Follicle Stimulating Hormone 11.6 mIU/mL
== END | disposition home or self-care (01) ==
LOC: LABWHC1 16:02
PROVIDERS: ATTEND Obstetrics & Gynecology
DX: N95.2 Postmenopausal atrophic vaginitis (principal); E34.50 Androgen insensitivity syndrome, unspecified
CPT/HCPCS: 36415; 82670; 83001; 84144; 84402; 84403

== ENCOUNTER → 2023-12-31 | Outpatient (CLI) | payer BC ==
[2023-12-31 20:57] LABS: Estradiol 61.7 pg/mL
[2023-12-31 21:17] LABS: Follicle Stimulating Hormone 7.2 mIU/mL
== END | disposition home or self-care (01) ==
LOC: LABWHC1 13:49
PROVIDERS: ATTEND Obstetrics & Gynecology
DX: E34.50 Androgen insensitivity syndrome, unspecified (principal); N95.2 Postmenopausal atrophic vaginitis
CPT/HCPCS: 36415; 82670; 83001; 84144; 84402; 84403

== ENCOUNTER → 2024-03-01 | Outpatient (CLI) | payer BC ==
[2024-03-01 16:01] LABS: HCT 47.1 % (37.2-46.3); HGB 15.5 g/dL (12.0-15.0); MCH 32.6 pg (27.0-32.0); MCHC 32.9 g/dL (32.0-37.0); MCV 98.9 FL (80.0-97.0); Mean Platelet Volume 10.1 FL (9.5-12.2); NRBC Per 100 WBC 0 X 10*3/uL (0.00-0.01); Platelet Count 230 X 10*3/uL (140-440); RBC 4.76 X 10*6/uL (4.10-5.20); RDW 12.8 % (11.5-14.5); WBC 8.27 X 10*3/uL (4.50-10.00)
[2024-03-01 16:32] LABS: ALT 22 U/L (8-44); AST 27 U/L (13-35); Albumin 4.7 g/dL (3.8-4.9); Albumin/Globulin Ratio 1.96 Ratio (1.60-3.17); Alkaline Phosphatase 71 U/L (41-126); BUN/Creat Ratio 20.57 Ratio (12.00-20.00); Blood Urea Nitrogen 14.4 mg/dL (9.0-27.0); Calcium 9.9 mg/dL (8.7-10.3); Carbon Dioxide 26.2 mmol/L (21.6-31.8); Chloride 101 mmol/L (96-109); Chol/HDL Ratio 2.29 Ratio; Estradiol 45.8 pg/mL; Globulin 2.4 g/dL (1.6-3.3); Glucose 60 mg/dL (70-110); LDL Cholesterol,Calculated 82.7 mg/dL (0.0-131.0); Potassium 4.5 mmol/L (3.5-5.5); Sodium 140 mmol/L (135-145); Total Bilirubin 0.4 mg/dL (0.3-1.2); Total Protein 7.1 g/dL (6.2-8.2); VLDL Calculation 11.48 mg/dL (5.00-40.00)
[2024-03-01 16:33] LABS: Follicle Stimulating Hormone 11.8 mIU/mL
== END | disposition home or self-care (01) ==
LOC: LABWHC1 12:10
PROVIDERS: ATTEND Obstetrics & Gynecology
DX: Z00.00 Encounter for general adult medical examination without abnormal findings (principal); G47.00 Insomnia, unspecified; R53.83 Other fatigue; R37 Sexual dysfunction, unspecified
CPT/HCPCS: 36415; 80053; 80061; 82670; 83001; 83036; 84144; 84402; 84403; 84443; 85027

== ENCOUNTER → 2024-05-30 | Outpatient (CLI) | payer BC ==
[2024-05-30 20:19] LABS: Testosterone 70.2 ng/dL (9.01-47.94)
[2024-05-30 21:25] LABS: Follicle Stimulating Hormone 4.9 mIU/mL
== END | disposition home or self-care (01) ==
LOC: LABWHC1 13:27
PROVIDERS: ATTEND Obstetrics & Gynecology
CPT/HCPCS: 36415; 82670; 83001; 84144; 84402; 84403

== ENCOUNTER → 2024-06-14 | Outpatient (CLI) | payer BC ==
--- NOTE | 2024-06-20 12:09 | MM ---
Reason for Exam: Screening (asymptomatic). Last mammogram was performed 1 year(s) and 9 month(s) ago. Patient History: Menarche at age 13. First Full-Term at age 18. Premenopausal. Patient has history of breast feeding. 03/25/2021, Benign Core Biopsy on the left side. Last menstrual period: 05/23/2024 Risk Values: Renetta 5 year model risk: 0.9%. NCI Lifetime model risk: 8.1%. Prior Study Comparison: 03/25/2021 Left Diagnostic Mammogram, [facility]. 09/26/2021 Bilateral Diagnostic Mammogram, [facility]. 09/30/2022 Bilateral MG 3D diag mammo w/cad [facility], [facility]. Tissue Density: There are scattered areas of fibroglandular density. Findings: Analyzed By CAD. There is no suspicious group of microcalcifications or new suspicious mass in either breast. Overall Assessment: Negative, BI-RAD 1 Management: Screening Mammogram of both breasts in 1 year. . Patient should continue monthly self-breast exams. A clinical breast exam by your physician is recommended on an annual basis. This exam should not preclude additional follow-up of suspicious palpable abnormalities. Note on Renetta scores and lifetime risk: 1. A Renetta score greater than 3% is considered moderate risk. If this is the case, consider specialist referral to assess eligibility for a risk reducing agent. 2. If overall lifetime risk for the development of breast cancer is 20% or higher, the patient may qualify for future screening with alternating mammogram and breast MRI. [facility], , 06/20/2024 12:07 PM. Electronically signed and approved by: Balaji Perez M.D. Radiologis
== END | disposition home or self-care (01) ==
LOC: RADMAMWWP 13:17
PROVIDERS: ATTEND Obstetrics & Gynecology
DX: Z12.31 Encounter for screening mammogram for malignant neoplasm of breast (principal); R92.323 Mammographic fibroglandular density, bilateral breasts
CPT/HCPCS: 77063; 77067

== ENCOUNTER → 2024-08-09 | Outpatient (CLI) | payer BC ==
[2024-08-10 02:20] LABS: HCT 46.7 % (37.2-46.3); HGB 15.6 g/dL (12.0-15.0); MCH 32.3 pg (27.0-32.0); MCHC 33.4 g/dL (32.0-37.0); MCV 96.7 FL (80.0-97.0); NRBC Per 100 WBC 0 X 10*3/uL (0.00-0.01); Platelet Count 223 X 10*3/uL (140-440); RBC 4.83 X 10*6/uL (4.10-5.20); RDW 12.6 % (11.5-14.5); WBC 11.37 X 10*3/uL (4.50-10.00)
[2024-08-10 03:41] LABS: ALT 24 U/L (8-44); AST 27 U/L (13-35); Albumin 4.8 g/dL (3.8-4.9); Albumin/Globulin Ratio 1.78 Ratio (1.60-3.17); Alkaline Phosphatase 68 U/L (41-126); Blood Urea Nitrogen 25.9 mg/dL (9.0-27.0); Calcium 9.8 mg/dL (8.7-10.3); Carbon Dioxide 26.5 mmol/L (21.6-31.8); Chloride 100 mmol/L (96-109); Chol/HDL Ratio 2.81 Ratio; Globulin 2.7 g/dL (1.6-3.3); Glucose 105 mg/dL (70-110); LDL Cholesterol,Calculated 111.9 mg/dL (0.0-131.0); Potassium 4.5 mmol/L (3.5-5.5); Sodium 138 mmol/L (135-145); Total Bilirubin 0.5 mg/dL (0.3-1.2); Total Protein 7.5 g/dL (6.2-8.2); VLDL Calculation 14.38 mg/dL (5.00-40.00)
== END | disposition home or self-care (01) ==
LOC: LABWHC1 16:09
PROVIDERS: ATTEND Family Medicine
DX: Z00.00 Encounter for general adult medical examination without abnormal findings (principal); Z13.220 Encounter for screening for lipoid disorders; R73.01 Impaired fasting glucose; R53.83 Other fatigue
CPT/HCPCS: 36415; 80053; 80061; 82670; 83036; 84144; 84402; 84443; 85027

== ENCOUNTER → 2024-08-23 | Outpatient (CLI) | payer BC ==
[2024-08-24 02:49] LABS: HCT 44.4 % (37.2-46.3); HGB 14.5 g/dL (12.0-15.0); MCH 32.2 pg (27.0-32.0); MCHC 32.7 g/dL (32.0-37.0); MCV 98.4 FL (80.0-97.0); Mean Platelet Volume 10.1 FL (9.5-12.2); NRBC Per 100 WBC 0 X 10*3/uL (0.00-0.01); Platelet Count 243 X 10*3/uL (140-440); RBC 4.51 X 10*6/uL (4.10-5.20); RDW 12.7 % (11.5-14.5); WBC 10.06 X 10*3/uL (4.50-10.00)
== END | disposition home or self-care (01) ==
LOC: LABWHC1 16:06
PROVIDERS: ATTEND Family Medicine
DX: D75.1 Secondary polycythemia (principal)
CPT/HCPCS: 36415; 85027

== ENCOUNTER → 2024-10-28 | Outpatient (CLI) | payer BC ==
[2024-10-28 19:08] LABS: Estradiol 37.1 pg/mL; Testosterone <10.00 ng/dL (9.01-47.94)
[2024-10-28 19:14] LABS: Follicle Stimulating Hormone 5.4 mIU/mL
== END | disposition home or self-care (01) ==
LOC: LABWHC1 14:42
PROVIDERS: ATTEND Obstetrics & Gynecology
DX: Z79.890 Hormone replacement therapy (principal)
CPT/HCPCS: 36415; 82670; 83001; 84144; 84402; 84403

== ENCOUNTER → 2025-02-22 | Outpatient (CLI) | payer BC ==
[2025-02-22 16:07] LABS: Follicle Stimulating Hormone 29.8 mIU/mL
== END | disposition home or self-care (01) ==
LOC: LABWHC1 12:09
PROVIDERS: ATTEND Obstetrics & Gynecology
DX: Z51.81 Encounter for therapeutic drug level monitoring (principal); Z79.890 Hormone replacement therapy; Z79.899 Other long term (current) drug therapy
CPT/HCPCS: 36415; 82670; 83001; 84144; 84403